=== PATIENT | female | born 1955 ===

== ENCOUNTER 2019-12-29 10:00 | Emergency (ER) | payer MEDICARE ==
[~2019-12-29] VITALS: Ht 162.6 cm; Wt 136.1 kg
[2019-12-29] MEDS ORDERED: LEVSOD150 PO (10:26)
[2019-12-29] MEDS ORDERED: TRAZ50 PO (10:29)
[2019-12-29] MEDS ORDERED: Norco 5-325 Ta1 EACH PO (10:29)
[2019-12-29] MEDS ORDERED: PRAM.5 PO (10:30)
[2019-12-29] MEDS ORDERED: DOXE25 PO (10:30)
[2019-12-29] MEDS ORDERED: EZET10 PO (10:31)
[2019-12-29] MEDS ORDERED: ZOCOR20 MG PO (10:31)
[2019-12-29] MEDS ORDERED: MULTIVITAMINS1 EAC3 PO (10:32)
[2019-12-29] MEDS ORDERED: Vitamin B Comple1 EA PO (10:32)
[2019-12-29] MEDS ORDERED: Voltaren100 GM TOP (12:11)
== END 2019-12-29 12:28 | disposition home or self-care (01) ==
LOC: ER 10:00
DX: M25.512 Pain in left shoulder (principal); Z88.5 Allergy status to narcotic agent; Z88.8 Allergy status to other drugs, medicaments and biological substances; Z79.899 Other long term (current) drug therapy
CPT/HCPCS: 73030; 96372-59; 99283-25; J1885

== ENCOUNTER → 2020-03-11 | Outpatient (CLI) | payer MEDICARE ==
[~2020-03-11] MED LIST: DOXE25 PO; EZET10 PO; LEVSOD150 PO; MULTIVITAMINS1 EAC3 PO; Norco 5-325 Ta1 EACH PO; PRAM.5 PO; TRAZ50 PO; Vitamin B Comple1 EA PO; Voltaren100 GM TOP; ZOCOR20 MG PO
[2020-03-11 15:36] LABS: CHOL/HDL RATIO 2.4; Cholesterol 187 mg/dL (50-200); Free Thyroxine 1.17 ng/dL (0.70-1.60); HDL Cholesterol 78 mg/dL (>39); LDL/HDL RATIO 1.2; Low Density Lipoprotein Chol 92 mg/dL (0-110); Triglycerides 83 mg/dL (30-160); Very Low Density Lipoprot Chol 16 mg/dL (6-32)
== END | disposition home or self-care (01) ==
LOC: LAB SHORT 13:47 → LAB 13:47
PROVIDERS: Hospitalist
DX: E03.9 Hypothyroidism, unspecified (principal)
CPT/HCPCS: 80061; 84439; 84443

== ENCOUNTER → 2020-06-29 | Outpatient (CLI) | payer MEDICARE | END | disposition home or self-care (01) | LOC: LAB SHORT 13:49 | DX: L65.9 Nonscarring hair loss, unspecified (principal) | CPT/HCPCS: 82728 ==

== ENCOUNTER → 2022-05-10 | Outpatient (CLI) | payer MEDICARE, OTHER ==
[2022-05-10 17:58] LABS: Free Thyroxine 0.87 ng/dL (0.70-1.60)
[2022-05-10 18:00] LABS: Thyroid Stimulating Hormone 12.6 uIU/mL (0.360-4.800); Triiodothyronine, Free 1.75 pg/mL (2.18-3.98)
== END | disposition home or self-care (01) ==
LOC: LAB SHORT 11:30
PROVIDERS: Hospitalist
DX: E03.9 Hypothyroidism, unspecified (principal)
CPT/HCPCS: 84439; 84443; 84481

== ENCOUNTER → 2023-03-06 | Outpatient (CLI) | payer MEDICARE, OTHER ==
[2023-03-06 19:55] LABS: CHOL/HDL RATIO 3.9; Cholesterol 249 mg/dL (50-200); Free Thyroxine 1.09 ng/dL (0.70-1.60); HDL Cholesterol 64 mg/dL (>39); LDL/HDL RATIO 2.4; Low Density Lipoprotein Chol 156 mg/dL (0-110); Triglycerides 146 mg/dL (30-160); Very Low Density Lipoprot Chol 29 mg/dL (6-32)
== END | disposition home or self-care (01) ==
LOC: LAB 17:38 → LAB SHORT 17:38
PROVIDERS: Hospitalist
DX: E03.9 Hypothyroidism, unspecified (principal); E78.5 Hyperlipidemia, unspecified
CPT/HCPCS: 80061; 84439; 84443

== ENCOUNTER 2024-01-28 17:01 | Emergency (ER) | payer MEDICARE, OTHER ==
[~2024-01-28] VITALS: Ht 162.6 cm; Wt 147.4 kg
[2024-01-28] MEDS ORDERED: BUSP5 (17:15)
[2024-01-28] MEDS ORDERED: MELOXICAM5 MG (17:15)
[2024-01-28] MEDS ORDERED: GABA100 (17:16)
[2024-01-28] MEDS ORDERED: FURO80 (17:16)
[2024-01-28] MEDS ORDERED: POTA8 (17:16)
[2024-01-28] MEDS ORDERED: B-COMPLEX WITH1 EAC2 PO (17:17)
[2024-01-28] MEDS ORDERED: Ketorolac Tromethamine 15mg Vial IM ONE ×2 (17:25→22:30)
[2024-01-28] MEDS ORDERED: Ibuprofen 400 MG Tab PO ONE (22:00)
[2024-01-28] MEDS ORDERED: Acetaminophen 500 MG Tab PO ONE (22:00)
[2024-01-28 23:00] VITALS: BP 108/71
== END 2024-01-28 23:20 | disposition home or self-care (01) ==
LOC: ER 17:01
DX: M25.552 Pain in left hip (principal); M25.562 Pain in left knee; M25.512 Pain in left shoulder; Z79.899 Other long term (current) drug therapy; Z88.5 Allergy status to narcotic agent; Z88.1 Allergy status to other antibiotic agents; Z91.048 Other nonmedicinal substance allergy status
CPT/HCPCS: 73030; 73502; 73562-LT; A9270; J1885